=== PATIENT | male | born 2000 | race Caucasian/White ===

== ENCOUNTER 2021-09-10 10:33 | Emergency (ER) | payer OTHER ==
[2021-09-10 11:12] VITALS: BP 130/81; PULSE 100; TEMP 99.9; BMI 31.5
[2021-09-10] MEDS ORDERED: SODIUM CHLORIDE 0.9% 500 ML INFUS.BAG IV ONE (11:59)
[2021-09-10] MEDS ORDERED: ACETAMINOPHEN 1000 MG/100 ML BAG IVPB ONE (12:00)
[2021-09-10] MEDS ORDERED: ACETAMINOPHEN INJECTION 100 ML IVPB ONE (12:35)
[2021-09-10 13:04] LABS: BASO % 0.3 % (0-2.0); EOS % 1.5 % (0-4.5); HEMATOCRIT 42.9 % (35.4-49); HEMOGLOBIN 14.6 GM/dL (11.7-16.9); LYMPH % 12.8 % (8-40); MCHC 33.9 g/dl (32.0-35.9); MEAN CELL VOLUME 85.6 fl (80-96); MEAN PLT VOLUME 8.2 fl (7.5-11.1); MONO % 6.5 % (3.8-10.2); NEUT % 78.9 % (42.8-82.8); PLATELET COUNT 266 10^3/uL (134-434); RBC 5.01 M/mm3 (4.00-5.60); RDW 12.6 % (11.9-15.9); WHITE BLOOD COUNT 7.7 K/mm3 (4.0-10.0)
[2021-09-10 13:24] LABS: CALCIUM 9.4 mg/dL (8.5-10.1)
[2021-09-10 13:25] LABS: ALBUMIN 3.9 g/dl (3.4-5.0); BLOOD UREA NITROGEN 11.4 mg/dL (7-18)
[2021-09-10 13:28] LABS: CREATININE 1.1 mg/dL (0.55-1.3)
[2021-09-10 13:30] LABS: BILIRUBIN,TOTAL 0.7 mg/dL (0.2-1); TOT PROT 7.7 g/dl (6.4-8.2)
[2021-09-10] MEDS ORDERED: DOXYCYCLINE HYCLATE 100 MG CAPSULE PO ONE ×2 (14:16→14:23)
== END 2021-09-10 15:18 | disposition home or self-care (01) ==
LOC: JER 10:33
PROC: 3E033GC Introduction of Other Therapeutic Substance into Peripheral Vein, Percutaneous Approach (ICD-10-PCS; principal; 2021-09-10)
DX: A69.29 Other conditions associated with Lyme disease (principal)
CPT/HCPCS: 0241U-QW; 36415; 80053; 85025; 86618; 99284-25

== ENCOUNTER 2023-04-30 09:37 | Day surgery (SDC) | payer OTHER ==
[2023-04-30] MEDS ORDERED: SODIUM CHLORIDE 1,000 ML IV STA (10:58)
[2023-04-30 11:49] LABS: INR 1.36 (0.83-1.09); PROTHROMBIN TIME (PATIENT) 15.7 SEC (9.7-13.0)
[2023-04-30 11:50] LABS: BASO % 0.3 % (0-2.0); EOS % 0.4 % (0-4.5); HEMATOCRIT 44.1 % (35.4-49); HEMOGLOBIN 15.6 GM/dL (11.7-16.9); LYMPH % 11.9 % (8-40); MCH 29.8 pg (25.7-33.7); MCHC 35.4 g/dl (32.0-35.9); MEAN CELL VOLUME 84.2 fl (80-96); MEAN PLT VOLUME 7.8 fl (7.5-11.1); MONO % 8.1 % (3.8-10.2); NEUT % 79.3 % (42.8-82.8); PLATELET COUNT 225 10^3/uL (134-434); RBC 5.24 M/mm3 (4.00-5.60); RDW 12.8 % (11.9-15.9); WHITE BLOOD COUNT 10.9 K/mm3 (4.0-10.0)
[2023-04-30 12:13] LABS: ALBUMIN 4.1 g/dl (3.4-5.0); CALCIUM 9.7 mg/dL (8.5-10.1)
[2023-04-30 12:14] LABS: BLOOD UREA NITROGEN 12.7 mg/dL (7-18)
[2023-04-30 12:16] LABS: CREATININE 1.2 mg/dL (0.55-1.3)
[2023-04-30 12:18] LABS: BILIRUBIN,TOTAL 1.9 mg/dL (0.2-1); TOT PROT 7.9 g/dl (6.4-8.2)
[2023-04-30] MEDS ORDERED: PIPERACILLIN/TAZOB 3.375 GM 3.375 GM in DEXTROSE 5%-WATER - 50 ML IVPB ONE (14:38)
[2023-04-30] MEDS ORDERED: SODIUM CHLORIDE 1,000 ML IV SCH (15:15)
[2023-04-30] MEDS ORDERED: ACETAMINOPHEN 1000 MG/100 ML BAG IVPB PRN ×2 (15:26→21:48)
[2023-04-30] MEDS ORDERED: KETOROLAC TROMETHAMINE 15 MG/ML VIAL IVPUSH PRN (15:26)
[2023-04-30] MEDS ORDERED: LACTATED RINGERS SOLUTION 1,000 ML/1,000 ML INFUS.BAG IV SCH (15:30)
[2023-04-30] MEDS ORDERED: PIPERACILLIN/TAZOB 3.375 GM 3.375 GM/50 ML BAG IVPB ONE (15:38)
[2023-04-30] MEDS ORDERED: LIDOCAINE HCL/PF 2% SDV 5ML VIAL ONE (16:37)
[2023-04-30] MEDS ORDERED: PROPOFOL 20 ML ONE ×2 (16:37→17:25)
[2023-04-30] MEDS ORDERED: MIDAZOLAM HCL 2 MG/2 ML SINGLE DOSE VIAL ONE (16:37)
[2023-04-30] MEDS ORDERED: KETOROLAC TROMETHAMINE 30 MG/1 ML VIAL ONE (17:28)
[2023-04-30] MEDS ORDERED: DEXAMETHASONE SOD PHOSPHATE 4 MG/1 ML VIAL ONE (17:28)
[2023-04-30] MEDS ORDERED: ONDANSETRON 4 MG/2 ML VIAL ONE (17:28)
[2023-04-30] MEDS ORDERED: ONDANSETRON 4 MG/2 ML VIAL IVPUSH PRN (18:06)
[2023-04-30] MEDS ORDERED: ACETAMINOPHEN 1000 MG/100 ML BAG IVPB ONE (18:06)
[2023-04-30] MEDS ORDERED: PROMETHAZINE HCL 25 MG/1 ML VIAL IVPB PRN (18:06)
[2023-04-30] MEDS ORDERED: LACTATED RINGERS SOLUTION 1,000 ML IV SCH (18:15)
[2023-04-30] MEDS ORDERED: ACETAMINOPHEN INJECTION 100 ML IVPB ONE (18:16)
[2023-04-30 19:09] VITALS: RESP 18
[2023-04-30] MEDS ORDERED: CEFTRIAXONE 1 GM in DEXTROSE 5%-WATER - 50 ML IVPB SCH (20:00)
[2023-04-30 20:44] VITALS: BMI 35.8
[2023-05-01] MEDS: KETOROLAC TROMETHAMINE 15 MG/ML VIAL IVPUSH PRN ×2 (02:07→16:20)
[2023-05-01] MEDS ORDERED: CEFTRIAXONE 1 GM in DEXTROSE 5%-WATER - 50 ML IVPB SCH (10:00)
[2023-05-01 14:55] LABS: BASO % 0.1 % (0-2.0); EOS % 0.1 % (0-4.5); HEMATOCRIT 41.3 % (35.4-49); HEMOGLOBIN 14.4 GM/dL (11.7-16.9); LYMPH % 14.3 % (8-40); MCH 29.4 pg (25.7-33.7); MEAN CELL VOLUME 84.2 fl (80-96); MONO % 8.6 % (3.8-10.2); NEUT % 76.9 % (42.8-82.8); PLATELET COUNT 254 10^3/uL (134-434); RDW 12.7 % (11.9-15.9); WHITE BLOOD COUNT 11.5 K/mm3 (4.0-10.0)
[2023-05-01 15:34] LABS: POTASSIUM 3.8 mmol/L (3.5-5.1)
[2023-05-01 15:38] LABS: CALCIUM 8.6 mg/dL (8.5-10.1)
[2023-05-01 15:39] LABS: ALBUMIN 3.5 g/dl (3.4-5.0); BLOOD UREA NITROGEN 14.7 mg/dL (7-18)
[2023-05-01 15:43] LABS: BILIRUBIN,TOTAL 0.8 mg/dL (0.2-1)
[2023-05-01 15:44] LABS: TOT PROT 6.7 g/dl (6.4-8.2)
[2023-05-01] MEDS ORDERED: KETOROLAC TROMETHAMINE 15 MG/ML VIAL IVPUSH ONE (16:15)
[2023-05-01] MEDS ORDERED: KETOROLAC TROMETHAMINE 30 MG/1 ML VIAL IVPUSH ONE (16:15)
[2023-05-01] MEDS: PIPERACILLIN/TAZOB 3.375 GM 3.375 GM in DEXTROSE 5%-WATER - 50 ML IVPB SCH (17:32)
[2023-05-02] MEDS: PIPERACILLIN/TAZOB 3.375 GM 3.375 GM in DEXTROSE 5%-WATER - 50 ML IVPB SCH ×2 (01:26→09:49)
[2023-05-02 07:11] VITALS: BP 103/72; PULSE 77; TEMP 98
[2023-05-02 09:42] LABS: BASO % 0.3 % (0-2.0); EOS % 1.3 % (0-4.5); HEMATOCRIT 39.2 % (35.4-49); HEMOGLOBIN 13.6 GM/dL (11.7-16.9); LYMPH % 28.5 % (8-40); MCH 29.5 pg (25.7-33.7); MCHC 34.7 g/dl (32.0-35.9); MEAN CELL VOLUME 85.1 fl (80-96); MEAN PLT VOLUME 8.3 fl (7.5-11.1); MONO % 7.7 % (3.8-10.2); NEUT % 62.2 % (42.8-82.8); PLATELET COUNT 230 10^3/uL (134-434); RBC 4.61 M/mm3 (4.00-5.60); RDW 12.7 % (11.9-15.9); WHITE BLOOD COUNT 7.2 K/mm3 (4.0-10.0)
[2023-05-02 09:56] LABS: POTASSIUM 3.7 mmol/L (3.5-5.1)
[2023-05-02 10:07] LABS: ALBUMIN 3.4 g/dl (3.4-5.0); CALCIUM 8.5 mg/dL (8.5-10.1)
[2023-05-02 10:08] LABS: BLOOD UREA NITROGEN 17.2 mg/dL (7-18)
[2023-05-02 10:10] LABS: CREATININE 1.1 mg/dL (0.55-1.3)
[2023-05-02 10:12] LABS: BILIRUBIN,TOTAL 0.8 mg/dL (0.2-1); TOT PROT 6.7 g/dl (6.4-8.2)
== END 2023-05-02 11:55 | disposition home or self-care (01) ==
LOC: JER 09:37 → UNDOADMIN 15:23 → JERBED 15:23 → SUATTDRO 16:55 → JASUSAT 16:55 → J5S 19:43 → JASUSAT 05-02 11:55
PROC: 0J9B0ZX Drainage of Perineum Subcutaneous Tissue and Fascia, Open Approach, Diagnostic (ICD-10-PCS; principal; 2023-04-30 15:30)
DX: K61.0 Anal abscess (principal)
CPT/HCPCS: 36415; 72193-TC; 80053; 85025; 85610; 86850; 86900; 86901; 87070; 87076; 87081; 87186; 87205; 94760; 99285-25; J0131; Q9967

== ENCOUNTER 2023-09-23 10:08 | Emergency (ER) | payer OTHER ==
[2023-09-23 10:42] VITALS: BP 145/90; PULSE 99; RESP 20; TEMP 97.7; BMI 32.8
[2023-09-23 11:22] LABS: BASO % 0.5 % (0-2.0); EOS % 2.5 % (0-4.5); HEMOGLOBIN 16.3 GM/dL (11.7-16.9); LYMPH % 28.1 % (8-40); MCH 29.3 pg (25.7-33.7); MCHC 34.6 g/dl (32.0-35.9); MEAN CELL VOLUME 84.6 fl (80-96); MEAN PLT VOLUME 8.3 fl (7.5-11.1); MONO % 7.9 % (3.8-10.2); PLATELET COUNT 184 10^3/uL (134-434); RBC 5.56 M/mm3 (4.00-5.60); RDW 12.9 % (11.9-15.9); WHITE BLOOD COUNT 5.8 K/mm3 (4.0-10.0)
[2023-09-23 11:28] LABS: PROTHROMBIN TIME (PATIENT) 11.5 SEC (9.7-13.0)
[2023-09-23 11:31] LABS: ACTIVATED PTT 31.9 SECONDS (25.2-36.5)
[2023-09-23 11:40] LABS: POTASSIUM 4.4 mmol/L (3.5-5.1)
[2023-09-23 11:41] LABS: CALCIUM 9.4 mg/dL (8.5-10.1)
[2023-09-23 11:42] LABS: ALBUMIN 4.3 g/dl (3.4-5.0); BLOOD UREA NITROGEN 14.1 mg/dL (7-18)
[2023-09-23 11:46] LABS: CREATININE 1.1 mg/dL (0.55-1.3); TOT PROT 7.6 g/dl (6.4-8.2)
[2023-09-23 11:47] LABS: BILIRUBIN,TOTAL 1.1 mg/dL (0.2-1)
== END 2023-09-23 14:42 | disposition home or self-care (01) ==
LOC: JERFT 10:08
DX: K91.840 Postprocedural hemorrhage of a digestive system organ or structure following a digestive system procedure (principal); Z20.822 Contact with and (suspected) exposure to COVID-19
CPT/HCPCS: 0241U-QW; 36415; 74177-TC; 80053; 85025; 85610; 85730; 86850; 86900; 86901; 99285-25; Q9967

== ENCOUNTER 2024-07-06 19:07 | Emergency (ER) | payer OTHER ==
[2024-07-06 19:16] VITALS: BP 106/70; PULSE 112; RESP 17; TEMP 99.2; BMI 31.1
[2024-07-06 20:50] LABS: HEMATOCRIT 45.3 % (40.1-51.0); HEMOGLOBIN 15.3 g/dL (13.7-17.5); MCHC 33.8 g/dl (32.3-36.5); MEAN CELL VOLUME 85.5 fl (79.0-92.2); PLATELET COUNT 194 x10^3/uL (163-337); RDW 11.9 % (11.9-15.3)
[2024-07-06] MEDS ORDERED: ACETAMINOPHEN INJECTION 100 ML ONE (20:50)
[2024-07-06] MEDS ORDERED: MAG HYDROX/AL HYDROX/SIMETH 30 ML UNIT-DOSE CUP ONE (20:51)
[2024-07-06] MEDS ORDERED: FAMOTIDINE 20 MG/50 ML IVPB 20 MG/50 ML MG IVPB ONE (20:51)
[2024-07-06 21:17] LABS: POTASSIUM 3.9 mmol/L (3.5-5.1)
[2024-07-06 21:19] LABS: BLOOD UREA NITROGEN 12.9 mg/dL (7-18); CALCIUM 8.6 mg/dL (8.5-10.1)
[2024-07-06 21:23] LABS: CREATININE 1.2 mg/dL (0.55-1.3)
[2024-07-06 21:24] LABS: BILIRUBIN,TOTAL 1.1 mg/dL (0.2-1)
[2024-07-06] MEDS: ACETAMINOPHEN 1000 MG/100 ML BAG IVPB ONE (21:38)
[2024-07-06] MEDS: FAMOTIDINE 20 MG/50 ML IVPB 20 MG/50 ML MG IVPB ONE (21:38)
[2024-07-06] MEDS: MAG HYDROX/AL HYDROX/SIMETH 30 ML UNIT-DOSE CUP PO ONE (21:38)
[2024-07-06] MEDS: SODIUM CHLORIDE 1,000 ML IV STA (21:38)
== END 2024-07-06 23:34 | disposition home or self-care (01) ==
LOC: JER 19:07
PROC: 3E033GC Introduction of Other Therapeutic Substance into Peripheral Vein, Percutaneous Approach (ICD-10-PCS; principal; 2024-07-06)
PROC: 3E033NZ Introduction of Analgesics, Hypnotics, Sedatives into Peripheral Vein, Percutaneous Approach (ICD-10-PCS; 2024-07-06)
PROC: 3E0337Z Introduction of Electrolytic and Water Balance Substance into Peripheral Vein, Percutaneous Approach (ICD-10-PCS; 2024-07-06)
DX: R10.13 Epigastric pain (principal); R11.0 Nausea
CPT/HCPCS: 0241U-QW; 36415; 76705-TC; 80053; 83690; 85025; 96361; 96365; 96375; 99285-25; J0131